=== PATIENT | male | born 1940 | race Caucasian/White ===

== ENCOUNTER 2022-09-23 07:30 | Outpatient (CLI) | payer MEDICARE, SELFPAY ==
--- NOTE | 2022-09-23 07:37 | ECG_ITS ---
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 Interpretive Statements NAME OF STUDY: LEXISCAN SESTAMIBI STRESS TEST INDICATION: [DIZZINESS, NEAR SYNCOPE, ] Procedure: At the baseline, the blood pressure was 147/74 mmHg with a heart rate of 67 bpm. The electrocardiogram showed normal sinus rhythm, normal axis with normal ST and T's. The Lexiscan was infused over a period of 20 seconds. A total of 0.4 mg of Lexiscan was infused. The stress phase was continued for a total of 5 minutes. Heart rate was at the end of stress phase was 88 bpm and a blood pressure of 158/68 mmHg. The EKG at the peak infusion revealed normal sinus rhythm with no significant ST-T wave changes. Sestamibi was injected 20 seconds after the Lexiscan infusion. Blood pressure at the end of recovery phase was 155/70 mmHg with a heart rate of 91bpm. Conclusion: 1. Normal EKG response to Lexiscan infusion 2. No Lexiscan induced chest pain or cardiac arrhythmia. 3. Normal blood pressure and heart rate response. 4. Sestamibi/sestamibi perfusion scan pending; see separate report. Electronically Signed On 10-11-2022 13:24:56 RETAIL AIDE by Jake Francisco M.D. [email or web address]
--- NOTE | 2022-09-23 07:38 | NMCV_ITS ---
NM huong perf SPECT r/s* [id number] Thom Sorto Age: 82 Gender: M : 1940 Exam Date: 09/23/2022 07:38 Ordering Phys: Ewa Wood NP Technologist: ROBINA Macias Exam Location: [facility] Indications: DIZZINESS STRESS TEST Please see separate stress test report in [facility] for full findings IMAGE PROTOCOL Rest/Stress 1 Lexiscan Day Radiopharmaceutical Dose (mCi) Administration Site Administered by Rest: Tc-99m 10.9 IV ROBINA Strong Sestamibi Stress:Tc-99m 32.3 IV ROBINA Strong Sestamibi Rest: 23-Sep-2022 60 Discovery 630 Stress: 23-Sep-2022 30 Discovery 630 0.4mg Lexiscan. Images obtained in supine and prone position. SPECT RESULTS Technical Quality: Excellent Raw Data Analysis: Normal Image Corrections: No attenuation or motion correction applied Summed Stress Score: 2 Summed Rest Score: 2 Summed Difference Score: 1 PERFUSION FINDINGS SPECT images demonstrate homogeneous tracer distribution throughout the myocardium. FUNCTIONAL RESULTS (calculated via Gated SPECT) Stress Image LV EF (%): 86 Stress EDV (mL):64 TID: 0.89 Stress ESV (mL):9 FUNCTIONAL FINDINGS: There is normal left ventricular systolic function. IMPRESSIONS 1. Normal myocardial perfusion imaging with no evidence of ischemia 2. LV systolic function is normal Jake Francisco MD (Electronically Signed) Final Date: 23 September 2022 10:27 S
[2022-09-23 08:09] VITALS: BMI 26.4
[2022-09-23 09:49] VITALS: BP 157/67; PULSE 88
== END 2022-09-23 07:31 | disposition home or self-care (01) ==
PROVIDERS: PCP Nurse Practitioner Family; Visit Provider Nurse Practitioner Family
DX: R42 Dizziness and giddiness (principal); R55 Syncope and collapse
CPT/HCPCS: 36415; 78452; 96374; A9500